=== PATIENT | male | born 1955 | race Caucasian/White ===

== ENCOUNTER 2024-03-24 20:28 | Emergency (ER) | payer OTHER, MEDICARE ==
[~2024-03-24] VITALS: Ht 162.6 cm; Wt 108.7 kg
[2024-03-25] MEDS: LIDOcaine/epinephrine/tetracaine TOPICAL sol 3 ML syringe TOP ONE (00:03)
[2024-03-25] MEDS: LIDOcaine 1% W/epiNEPHrine 1:100,000 20ml vial SQ ONE (00:13)
[2024-03-25 00:32] VITALS: BP 102/77; PULSE 95; RESP 16; TEMP 98.2; O2SAT 96
== END 2024-03-25 00:41 | disposition home or self-care (01) ==
LOC: ER 20:28
DX: S01.511A Laceration without foreign body of lip, initial encounter (principal); W18.39XA Other fall on same level, initial encounter; Y93.89 Activity, other specified; Y92.89 Other specified places as the place of occurrence of the external cause; Y99.8 Other external cause status
CPT/HCPCS: 40650; 99284; J3490; 12011; A6449